=== PATIENT | male | born 1970 | race Caucasian/White ===

== ENCOUNTER 2024-06-28 09:23 | Emergency (ER) | payer OTHER, BC ==
[~2024-06-28] VITALS: Ht 185.4 cm; Wt 102.1 kg
[2024-06-28 09:39] VITALS: PULSE 79; RESP 15; TEMP 98.1; O2SAT 100
== END 2024-06-28 11:10 | disposition home or self-care (01) ==
LOC: ER 09:51
DX: S06.0X0A Concussion without loss of consciousness, initial encounter (principal); M54.2 Cervicalgia; M79.641 Pain in right hand; V43.52XA Car driver injured in collision with other type car in traffic accident, initial encounter; Y92.488 Other paved roadways as the place of occurrence of the external cause
CPT/HCPCS: 70450; 72125; 99282